=== PATIENT | female | born 1980 | race Caucasian/White ===

== ENCOUNTER 2020-12-03 09:32 | Emergency (ER) | payer MEDICAID ==
[~2020-12-03] VITALS: Ht 152.4 cm; Wt 82.6 kg
[~2020-12-03 09:32] MED LIST: ACYC-166; GABA100C PO; NOR10T PO
[2020-12-03 10:35] LABS: Basophils # (auto) 0.1 10 ^3/uL (0-0.2); Basophils % (auto) 0.6 % (0.0-2.0); Eosinophils # (auto) 0 10 ^3/uL (0-0.8); Eosinophils % (auto) 0.3 % (0.0-7.0); Hematocrit 36.6 % (36.0-46.0); Hemoglobin 12.5 g/dL (12.2-16.2); Lymphocytes # (auto) 1.4 10 ^3/uL (0.4-5.4); Mean Corpuscular Hemoglobin 31.8 pg (28.0-32.0); Mean Corpuscular Hgb Conc. 34.2 g/dL (32.0-36.0); Mean Corpuscular Volume 92.8 fL (80.0-100.0); Monocytes # (auto) 0.9 10 ^3/uL (0-1.3); Monocytes % (auto) 6.2 % (0.0-12.0); Neutrophils # (auto) 11.7 10 ^3/uL (1.6-8.6); Neutrophils % (auto) 82.9 % (37.0-80.0); Platelet Count (auto) 357 10^3/uL (140-450); Red Blood Cells 3.94 10^6/uL (4.0-5.20); Red Cell Distribution Width 12.7 % (11.8-14.3); White Blood Cell 14.1 10^3/uL (4.4-10.8)
[2020-12-03 10:58] LABS: INR 0.97 (0.9-1.15); Partial Thromboplastin Time 28.7 sec (23.0-31.2)
[2020-12-03 11:01] LABS: Calcium 9.3 mg/dL (8.5-10.1); Potassium 3.8 mmol/L (3.5-5.1)
[2020-12-03 11:05] LABS: BUN/Creatinine Ratio 14.1; Bilirubin, Total 0.3 mg/dL (0.2-1.0)
[2020-12-03 11:08] LABS: Urine Bacteria FEW /hpf (None Seen); Urine Blood 2+ /uL (Negative); Urine Specific Gravity 1.006 (1.001-1.035); Urine WBC 32 /hpf (0 - 5)
[2020-12-03 11:40] VITALS: BP 120/80
== END 2020-12-03 11:50 | disposition home or self-care (01) ==
LOC: ER 09:32
DX: N39.0 Urinary tract infection, site not specified (principal); N75.0 Cyst of Bartholin's gland; Z98.51 Tubal ligation status; Z90.710 Acquired absence of both cervix and uterus; Z88.6 Allergy status to analgesic agent
CPT/HCPCS: 36415; 74176; 80053; 81001; 85025; 85610; 85730

== ENCOUNTER 2021-07-13 18:47 | Emergency (ER) | payer MEDICAID ==
[~2021-07-13] VITALS: Ht 160 cm; Wt 83.9 kg
[2021-07-13 19:13] VITALS: BP 127/90
[2021-07-13] MEDS ORDERED: LIDOCAINE 1% HCL (LOCAL ANESTH.) INJ 20ML MDV IJ ONE (23:30)
[2021-07-14] MEDS ORDERED: BACITRACIN TOP OINT 1 UD PKG TOP ONE (00:15)
== END 2021-07-14 03:18 | disposition home or self-care (01) ==
LOC: ER 18:48
DX: S71.112A Laceration without foreign body, left thigh, initial encounter (principal); Z98.51 Tubal ligation status; W26.0XXA Contact with knife, initial encounter; Y93.89 Activity, other specified; Y92.89 Other specified places as the place of occurrence of the external cause; Y99.8 Other external cause status
CPT/HCPCS: 12004; 99283; J2001

== ENCOUNTER 2022-07-15 07:01 | Day surgery (SDC) | payer MEDICAID ==
[2022-07-15] VITALS (7 sets, daily range): BP systolic 94–115; BP diastolic 63–79
[~2022-07-15] VITALS: Ht 160 cm; Wt 78.9 kg
[~2022-07-15 07:01] MED LIST changes: -ACYC-166; +ACYC-166 PO; +ASPI1TAB20 PO; +ATOR40TA52 PO; +CETI10CA PO; +ESTR1TAB6 PO; +FURO40TA4 PO; -GABA100C PO; +MELO1TAB56 PO; -NOR10T PO; +POTA10TA51 PO; +[UNRECOGNIZED DRUG - CODE] PO
[2022-07-15] MEDS ORDERED: IODIXANOL 320MG/ML 100ML BTL IV ONE (07:23)
[2022-07-15] MEDS ORDERED: LIDOCAINE 2%HCL (LOCAL ANESTH.) INJ 20ML MDV ONE (07:23)
[2022-07-15] MEDS ORDERED: methylPREDNISolone SOD SUCC 125 MG/2 ML VL ONE (07:37)
[2022-07-15] MEDS ORDERED: ANGIOMAX 250 MG VIAL IV ONE (07:37)
[2022-07-15] MEDS ORDERED: MIDAZOLAM HCL 2MG/2ML 2ml VIAL (1mg/ml) ONE (07:38)
[2022-07-15] MEDS ORDERED: diphenhdrAMINE HCL 50 MG/1 ML VL ONE (07:38)
[2022-07-15] MEDS ORDERED: fentaNYL CITRATE 100 MCG/2 ML VL ONE (07:38)
[2022-07-15] MEDS ORDERED: VERAPAMIL 2.5MG/ML INJ 2ML VIAL IV ONE (07:38)
[2022-07-15] MEDS ORDERED: FAMOTIDINE (10MG/ML) 2ML VL IV ONE (07:39)
[2022-07-15] MEDS ORDERED: SODIUM CHL 0.9% 0 ML ONE (07:39)
[2022-07-15] MEDS ORDERED: HEPARIN SODIUM (PORCINE) 5000 UNITS/ML 1ML VIAL ONE (08:04)
== END 2022-07-15 11:05 | disposition home or self-care (01) ==
LOC: CATH 07:01
PROVIDERS: ATTEND Internal Medicine Cardiovascular Disease
DX: R94.39 Abnormal result of other cardiovascular function study (principal); R07.9 Chest pain, unspecified; R07.89 Other chest pain; E78.5 Hyperlipidemia, unspecified; M06.9 Rheumatoid arthritis, unspecified; E66.9 Obesity, unspecified; Q79.60 Ehlers-Danlos syndrome, unspecified; Z20.822 Contact with and (suspected) exposure to COVID-19
CPT/HCPCS: 93458; C1887; C1894; J1200; J1644; J2250; J2930; J3010; J3490; Q9967; U0003; 99152; 99153